=== PATIENT | female | born 1990 | race Caucasian/White ===

== ENCOUNTER 2017-10-06 16:32 | Emergency (ER) | payer BC ==
[2017-10-06 17:18] VITALS: BP 118/71
--- NOTE | 2017-10-06 17:45 | UC ---
Lower Extremity/Ankle HPI - HPI Summary HPI Summary: left great toe pain redness swelling and some purulent drainage around nail--- began after a pedicure 7 days ago - History of Current Complaint Hx Obtained From: Patient Hx Last Menstrual Period: 10/03/17 ?: No Onset/Duration: Sudden Onset, Lasting Weeks - 1, Worse Since - past 2 days Pain Intensity: 1 Pain Scale Used: 0-10 Numeric Aggravating Factor(s): Standing Able to Bear Weight: Yes <Polly Bello - Last Filed: 10/06/17 18:48> <Abby Carroll - Last Filed: 10/06/17 19:12> - History of Current Complaint Chief Complaint: UCLowerExtremity Stated Complaint: TOE INFECTION Time Seen by Provider: 10/06/17 17:28 - Allergies/Home Medications Allergies/Adverse Reactions: Allergies Allergy/AdvReac Type Severity Reaction Status Date / Time No Known Allergies Allergy Verified 10/06/17 17:12 PMH/Surg Hx/FS Hx/Imm Hx Previously Healthy: Yes - Surgical History Surgical History: Yes Surgery Procedure, Year, and Place: wisdom teeth removal 2007 [facility] [place]. arthroscopic knee sx right knee for torn meniscus. - Family History Known Family History: Negative: Cardiac Disease - Social History Occupation: Employed Full-time Lives: With Family Alcohol Use: Occasionally Alcohol Amount: 2 DRINKS PER WEEK Substance Use Type: None Smoking Status (MU): Never Smoked Tobacco Have You Smoked in the Last Year: No <Polly Bello - Last Filed: 10/06/17 18:48> Review of Systems Constitutional: Negative Skin: Other - pain and redness around left great toe nail Eyes: Negative ENT: Negative Respiratory: Negative Cardiovascular: Negative Gastrointestinal: Negative Genitourinary: Negative Motor: Negative Neurovascular: Negative Musculoskeletal: Negative Neurological: Negative Psychological: Negative Is Patient Immunocompromised?: No All Other Systems Reviewed And Are Negative: Yes <Polly Bello - Last Filed: 10/06/17 18:48> Physical Exam Triage Information Reviewed: Yes Appearance: Well-Appearing, No Pain Distress, Well-Nourished Vital Signs: Initial Vital Signs Temp 99.1 F 10/06/17 17:14 Pulse 63 10/06/17 17:14 Resp 16 10/06/17 17:14 BP 118/71 10/06/17 17:14 Pulse Ox 99 10/06/17 17:14 Vital Signs Reviewed: Yes Eye Exam: Normal Eyes: Positive: Conjunctiva Clear ENT Exam: Normal ENT: Positive: Normal ENT inspection, Hearing grossly normal. Negative: Trismus , Muffled voice, Hoarse voice Dental Exam: Normal Neck exam: Normal Neck: Positive: Supple, Nontender Respiratory Exam: Normal Respiratory: Positive: Chest non-tender, No respiratory distress, No accessory muscle use Cardiovascular Exam: Normal Cardiovascular: Positive: RRR, Pulses Normal, Brisk Capillary Refill Musculoskeletal Exam: Normal Musculoskeletal: Positive: Strength Intact, ROM Intact, Edema @ - distal left great toe Neurological Exam: Normal Neurological: Positive: Alert Psychological Exam: Normal Skin Exam: Other Skin: Positive: Other - erythema around left great toe nail <Polly Bello - Last Filed: 10/06/17 18:48> Vital Signs: Initial Vital Signs Temp 99.1 F 10/06/17 17:14 Pulse 63 10/06/17 17:14 Resp 16 10/06/17 17:14 BP 118/71 10/06/17 17:14 Pulse Ox 99 10/06/17 17:14 <Abby Carroll - Last Filed: 10/06/17 19:12> Lower Extremity Course/Dx - Course Course Of Treatment: warm soap and water soaks, keflex, tylenol/ibuprofen for pain folllow with pcp - Differential Dx/Diagnosis Provider Diagnoses: paronychia left great toe <Polly Bello - Last Filed: 10/06/17 18:48> Discharge - Sign-Out/Discharge Documenting (check all that apply): Discharge/Admit/Transfer - Billing Disposition and Condition Condition: STABLE Disposition: Home <Polly Bello - Last Filed: 10/06/17 18:48> - Billing Disposition and Condition Condition: STABLE Disposition: Home <Abby Carroll - Last Filed: 10/06/17 19:12> - Discharge Plan Condition: Stable Disposition: HOME Prescriptions: Cephalexin CAP* [Keflex CAP*] 500 mg PO QID #28 cap Patient Education Materials: Paronychia (ED), Warm Compress or Soak (ED) Referrals: Donaldo Brown DO [Primary Care Provider] - If Needed Attestation Statement User Type: Provider - I was available for consult. This patient was seen by the [facility]. The patient was not presented to, seen by, or examined by me. -Matt <Abby Carroll - Last Filed: 10/06/17 19:12>
== END 2017-10-06 17:37 | disposition home or self-care (01) ==
LOC: UCCORT 16:32
DX: L03.032 Cellulitis of left toe (principal)
CPT/HCPCS: 99212; G0463

== ENCOUNTER 2018-01-22 15:50 | Emergency (ER) | payer BC ==
--- OUTSIDE RECORDS SUMMARY | 2018-01-22 16:03 | XMS REPORT ---
:1990 External Reference #:[id number] Author Organization [facility] Address [address] [place] [address] Phone [phone] Care Team Providers Name Role Phone HCP given Primary Care Physician Unavailable Payers Type Date Identification Numbers Payment Provider Subscriber Commercial Effective: Policy Number: Luan Matson 2016 [id number] Ind/Ppo/Hmo/Pos PayID: [id number] [address] [address] [place] [address] Problems Date Description Provider Status Onset: 05/06/2013 Lymphadenopathy Donaldo Brown D.O. Active Onset: 05/06/2013 Acute pharyngitis Donaldo rBown D.O. Active Family History Date Family Member(s) Problem(s) Comments Father Irritable Bowel Syndrome Mother None First Brother None Onset: (age 70 Years) Maternal Grandmother Breast Cancer Social History Type Date Description Comments Lives With Mother And Father Diet Healthy, Well Balanced Sleep Typically sleeps 9 hours a night Smoke-Free Home is smoke-free Pets Dogs And Rabbits Abuse No history of abuse Cigarette Use 01/04/2014 Tobacco Of Any Kind Denies Use Cigarette Use Denies Cigarette Use Smoking Non Smoker / No Tobacco Daily Caffeine Consumes Caffeine/Soda Exercise Type/Frequency Volleyball, Softball, but only soccor in the Soccer last six mos Sun Exposure moderate amount of sun exposure Sun Exposure Uses sunscreen Seat Belt/Car Seat always uses seat belt Bike Helmet Always Guns in Home Yes, Not Locked Up Smoke Alarms Yes smoke alarm Contraceptive Methods 07/12/2010 Plan B - Informed Contraceptive Methods Past methods include oral used for menorrhagia contraceptives did have one partner and intercourse in those years # Partners in a Lifetime Partners 1-5 1 Father's Occupation Librarian Helper Mother's Occupation [employer] Allergies, Adverse Reactions, Alerts Date Description Reaction Status Severity Comments 11/17/2003 NKDA active Medications Medication Date Status Form Strength Qnty SIG Indications Ordering Provider Shiraz 05/20 10/21 Active Tablets 1-20mg-mc daily g Valacyclovir 05/19 Active Tablets 1gm 20tab take two B00.9 Sopchak, HCL s tablets by Valdez FultonO. mouth every 12 hours for 2 doses. start at onset of symptoms of cold sore on/in your nose or lips, prn Triamcinolone Active Ointment 0.1% apply Radha, Acetonide /0000 sparingly MD Talita to affected area 3 times a day as needed Amoxicillin 03/02 Hx Tablets 875mg 20tab 1 tab by J02.0 Tej, s mouth Vivian Monae - twice a 03/12 day x1 days Prednisone 10/11 Hx Tablets 10mg 4 tabs qam R21 Silcoff, x3days Vivain Monae - then 3 po 10/26 qam x3days /2016 then 2 po qam x3 days then 1 Qam x3days then 1/2 Qam x3days then D/C Prednisone 10/07 Hx Tablets 10mg 60tab 6 pills R21 Silcoff, s daily to Vivian Monae - start, 10/11 taper directed Fluocinonide 10/07 Hx Cream 0.1% 30gm apply a R21 Felix, thin layer Donaldo D.Oscar. - to 10/30 affected areas 2x/day as needed for itchy rash; don't use on face Clotrimazole/B 01/25 Hx Cream 1-0.05% 45gm apply to B35.6 Hektor, etamethasone affected TATA De La Fuente Dipropionate - areas 01/11 twice a day as needed Lomedia 24 Fe 11/07 Hx Tablets 1-20mg-mc take 1 g(24) tablet by - mouth once 10/21 Amoxicillin 04/02 Hx Capsules 250mg 30cap 1 three J20.9 . s times a Joann, - day for M.DOndina 04/12 ten days for bronchitis Minastrin 24 11/11 Hx Chewtabs 1-20mg-mc chew and Unknown g(24) swallow 1 - tablet by 11/07 mouth once daily Fluticasone 08/29 Hx Suspension 50mcg/Act 2 sprays 472.0 Unknown Propionate into each - nostril 05/29 once daily /2016 as needed for nasal congestion Triamcinolone 01/04 Hx Cream 0.1% 30gm apply a 691.8 Silcoff, Acetonide thin layer Vivian Monae - to 02/03 affected area on vulva 2-3x/day as needed Aviane 10/19 Hx Tablets 0.1-20mg- 28tab 1 qd A. mcg s Danette David M.D. 11/16 Elidel 10/03 Hx Cream 1% 30g apply to affected - area 01/04 sparingly Ketoconazole 09/19 Hx Cream 2% 15gm 1 unit 110.5 Sopchak, apply to Donaldo D.OOndina - affected 10/03 area twice a day Lidocaine 05/06 Hx Solution 2% 100ml Take 15 ml 785.6 Sopchak, Viscous by mouth Donaldo D.O. - every 3 09/18 hours needed for oropharynx anesthetic Valacyclovir 04/26 Hx Tablets 1gm 4tabs take two 054.9 Silco, tablets by Vivian Monae - mouth 09/18 every hours for 2 doses. start at onset of symptoms of cold sore on/in your nose Acyclovir 04/20 Hx Ointment 5% 15gm apply to 782.1 Silcoff, affected Vivian Monae - area (near 09/18 the opening of left nostril) every 3hrs while awake (6x/day) for up to 1 week Prednisone 02/04 Hx Solution 5mg/5ML 200ml Take 20 ml 075 Sopboyd by mouth Donaldo D.O. - daily for 04/19 10 with food or milk Augmentin 01/31 Hx Tablets 875-125mg 20tab Take 1 463 Sopchak s tablet by Yonatan Fulton. - mouth 04/19 every hours for sinus irritation and congestion Lidocaine 01/31 Hx Solution 2% 100ml Take 15 ml 463 Sopchak, by mouth Yonatan Fulton. - every 3 04/19 hours needed for oropharynx anesthetic Lotrimin Ultra 01/02 Hx Cream 1% 24GRT apply tid 782.1 Silcoff, ube to Vivian Monae - affected 02/01 areas until rash is gone for at least 2 days Triamcinolone 01/02 Hx Cream 0.5% 15gm apply 2-3 782.1 Silcoff, Acetonide x/day up Vivian Monae - to 2 wks 02/01 Permethrin 01/02 Hx Cream 5% 1bott topical: 782.1 Silcoff le apply all Vivian Monae - over body, 02/01 leave on at least 8 hrs, repeat 1 wk, prn Sulfamethoxazo 10/18 Hx Tablets 400-80mg take 1 706.1 Radha, le/Trimethopri tablet by MD Talita m - mouth once 04/19 a day Aviane 10/16 Hx Tablets 0.1-20mg- take 1 Renaissance mcg tablet by Orderly of - mouth once Amana 11/11 daily /2014 Sulfamethoxazo 09/27 Hx Tablets 400-80mg take 1 Radha, le/Trimethopri tablet by MD Talita m - mouth once 05/02 a day /2012 Sieve/ 09/25 Hx 1unit 724.5 Oumar Mc To elroy Rodriguez MD Collect - Possible 10/18 Kidney Stones Bactroban 06/01 Hx Ointment 2% 10uni intranasal Unknown Nasal ts : use 1/2 - of the 05/06 oint from the single-use tube- applied into one nostril and the other bid x 5 d Doxycycline 04/16 Hx Tablets 100mg 1 tab po Radha, Hycl daily MD Talita - 09/25 Typhoid 10/17 Hx Capsules 4caps 1 qod for V65.49 Jose Miguel Hussein Vaccine 4 doses Dong David - Vivian 10/18 Doxycycline 10/17 Hx Capsules 100mg 50cap 1 qd as V65.49 Jose Miguel Hussein cl s directed Danette DavidDOndina 03/13 Mupirocin 01/29 Hx Ointment 2% 22g apply tid x 1 week - to 05/06 affected areas Tessalon 02/05 Hx Capsules 100mg 30cap 1 to 2 tab 465.9 SilcoElva franks /2009 s po tid prn Vivian Monae - cough 02/20 Loratadine 02/05 Hx Tablets 10mg 30tab 1 po qd 782.1 Silsusi s Vivian Monae - 10/16 Ortho-Novum 10/24 Hx Tablets - 3tabs 1 po qd V25.01 Jose Miguel Hussein - Danette David.DOndina 05/17 Ortho 06/05 Hx Tablets 56tab take one V25. Jose Miguel Hussein Tri-Cyclen s tablet by Joann - mouth M.D. 10/24 every day as directed Doryx 12/[address] 100mg 1 bid 706.1 Shade, Mina Pollack MD - 06/05 Ferrous 03/15 Hx Tablets 325mg OTC 1 in am 280.9 Jose Miguel Hussein you find Joann, - these over M.D. 09/09 counter Permethrin 03/15 Hx Cream 5% QS apply to 133.0 . ALL areas Joann, - of the M.D. 03/25 body from the neck on down- wash off after 8-14 hrs repeat after 10-14 days Fluocinonide 10/26 Hx Cream 0.05% 25gm apply to 782.1 . affected Joann, - area tid M.D. 04/24 prn itch Tessalon 07/15 Hx Perles 100mg 50uni 1-2 qid 466.0 . ts cough Joann - M.DOndina 07/22 Amoxil 07/15 Hx Capsules 250mg 30cap 1 po tid 466.0 . s until gone Joann - M.DOndina 07/25 Pen-v 06/17 Hx 500mg 20uni 1 bid for 462 . ts ten days Danette David.DOndina 06/27 Retin-A 04/28 Hx Cream 0.05% 45gm apply to V20.2 Jose Miguel A. affected Joann, - area qhs M.D. 10/05 Erythromycin & 02/25 Hx Gel 30mg;50mg QS apply to 706.1 Jose Miguel A. Benzoyl / affected Joann, Peroxide - area q am M.D. 10/03 Biaxin 07/20 Hx Tablets 250mg 20tab 1 PO bid 462 s Until Gone Danette David M.DOndina 07/30 Retin-A 06/10 Hx Cream 0.025% 45gm apply to 706.1 . affected Joann, - area qd M.D. 04/28 Amoxil 01/05 Hx Capsules 250mg 30cap 1 tablet 3 Breiman, s times a Radhika, - day for 10 N.P. Amoxil 10/01 Hx Capsules 250mg 30cap 1 po tid 462 s until gone Danette David M.DOndina 11/16 Retin-A 09/14 Hx Gel 0.025% 45gm apply to 706.1 Jose Miguel A. affected Joann, - area qd M.D. 06/10 Retin-A Micro Hx Gel 0.04% Apply To V20.2 Shade, Affected Mina Pollack MD - Area qd 10/16 Control Of Acne Minocycline Hx Tablets 100mg V20.2 Unknown HCL /0000 - 10/16 Nortrel 1/35 Hx Tablets 1-35mg-mc QS3Mo 1 qd V70.0 Jose Miguel A. / Danette Guevara M.D. 10/16 626.6 280.9 Multivitamin - Hx 1 qd Unknown 10/30/2017 Myorisan - Hx Capsules 20mg 2 am and 1 pm Radha, 11/29/2015 MD Talita Medications Administered in Office Medication Date Status Form Strength Qnty SIG Indications Ordering Provider TB Intradermal Administered Injection Felixk, Test 014 Natalie Fulton TB Intradermal Administered Injection So Test 010 Thomas Goodrich TB Intradermal Administered Injection Nurse's Test 009 Schedule Immunizations CPT Code Status Date Vaccine Lot # [id number] Given 05/30/2016 Influenza Virus Vaccine, Quadrivalent, Split, [place] Use 12982 Given 01/29/2016 Influenza Virus Vaccine, Quadrivalent, Split, Preservative Free U-Flu Given 03/04/2015 Influenza,Unspecified 94992 Given 01/04/2014 Influenza Virus Vaccine, Quadrivalent, Split, [id number] Preservative Free 12832 Given 01/24/2013 Flu, Split Virus 3Yrs [id number] 86424 Given 04/27/2012 Hep A, Adult [id number] 62972 Given 03/01/2012 Flu Vaccine Split Virus 3Yrs And Older 76004 Given 10/18/2011 Hep A, Adult [id number] 02573 Given 04/17/2009 Flu, Split Virus 3Yrs 12297 Given 04/26/2007 Gardasil HPV vaccine 30612 Given 12/20/2006 Gardasil HPV vaccine [id number] 60394 Given 10/20/2006 Menactra Menningitis Vaccine [id number] 89191 Given 10/20/2006 Adacel or Boostrix, TDaP [id number] 12171 Given 10/20/2006 Gardasil HPV vaccine [id number] 75970 Given 10/08/2003 Rabies Immunization 02986 Given 04/22/2002 Td Immunization 73336 Given 12/26/1995 Poliomyelitis Immunization 76346 Given 12/26/1995 Dtap Immunization (Tripedia) (Infanrix) 92701 Given 12/27/1994 MMR Virus Immunization 46992 Given 04/02/1993 Hep B Immunization, Ped/Adolescent To 11 Yrs 03063 Given 10/20/1992 Hep B Immunization, Ped/Adolescent To 11 Yrs 31514 Given 09/22/1992 Hep B Immunization, Ped/Adolescent To 11 Yrs 62709 Given 03/24/1992 Poliomyelitis Immunization 88823 Given 12/26/1991 MMR Virus Immunization 47182 Given 04/16/1991 Dtap Immunization (Tripedia) (Infanrix) 04182 Given 01/31/1991 Poliomyelitis Immunization 00128 Given 01/31/1991 Dtap Immunization (Tripedia) (Infanrix) 37951 Given 1990 Poliomyelitis Immunization 19794 Given 1990 Dtap Immunization (Tripedia) (Infanrix) Vital Signs Date Vital Result Comment 10/31/2017 BP Systolic 122 mmHg BP Diastolic 80 mmHg Height 69 inches 5'9" Weight 189.00 lb BMI (Body Mass Index) 27.9 kg/m2 03/02/2017 BP Systolic 108 mmHg BP Diastolic 70 mmHg Body Temperature 98.4 F Weight 184.00 lb 01/12/2017 BP Systolic 124 mmHg BP Diastolic 64 mmHg Weight 184.00 lb 10/07/2016 BP Systolic 104 mmHg BP Diastolic 72 mmHg Weight 175.00 lb 05/30/2016 BP Systolic 120 mmHg BP Diastolic 80 mmHg Body Temperature 98.3 F Height 69 inches 5'9" Weight 174.00 lb BMI (Body Mass Index) 25.7 kg/m2 01/26/2016 BP Systolic 118 mmHg BP Diastolic 84 mmHg Weight 171.00 lb 11/30/2015 BP Systolic 106 mmHg BP Diastolic 70 mmHg Height 69 inches 5'9" Weight 168.00 lb BMI (Body Mass Index) 24.8 kg/m2 04/02/2015 Weight 161.00 lb 11/20/2014 BP Systolic 116 mmHg BP Diastolic 58 mmHg Heart Rate 65 /min Height 69 inches 5'9" Weight 168.00 lb W/Shoes BMI (Body Mass Index) 24.8 kg/m2 Last Menstrual Period 2072012 10/04/2014 BP Systolic 116 mmHg BP Diastolic 76 mmHg Height 69 inches 5'9" Weight 164.00 lb BMI (Body Mass Index) 24.2 kg/m2 08/30/2014 BP Systolic 126 mmHg BP Diastolic 90 mmHg Body Temperature 98.3 F Weight 163.00 lb shoes on 04/19/2014 BP Systolic 124 mmHg BP Diastolic 76 mmHg Height 69.25 inches 5'9.25" Weight 163.00 lb BMI (Body Mass Index) 23.9 kg/m2 01/04/2014 BP Systolic 144 mmHg BP Diastolic 80 mmHg Weight 168.00 lb 10/04/2013 BP Systolic 124 mmHg BP Diastolic 86 mmHg Height 69 inches 5'9" Weight 168.00 lb BMI (Body Mass Index) 24.8 kg/m2 09/19/2013 BP Systolic 116 mmHg BP Diastolic 64 mmHg Body Temperature 98.6 F Weight 165.00 lb 05/06/2013 BP Systolic 116 mmHg BP Diastolic 68 mmHg Body Temperature 98.6 F Weight 163.00 lb Shoes on 04/20/2013 BP Systolic 112 mmHg BP Diastolic 76 mmHg Body Temperature 97.8 F Height 69.5 inches 5'9.50" Weight 162.00 lb BMI (Body Mass Index) 23.6 kg/m2 02/04/2013 BP Systolic 116 mmHg BP Diastolic 84 mmHg Body Temperature 98.9 F Weight 153.00 lb 01/31/2013 BP Systolic 134 mmHg BP Diastolic 80 mmHg Weight 156.00 lb 01/24/2013 BP Systolic 120 mmHg BP Diastolic 70 mmHg Body Temperature 98.5 F Weight 156.00 lb 01/02/2013 BP Systolic 119 mmHg BP Diastolic 67 mmHg Heart Rate 67 /min Weight 157.00 lb 10/18/2012 BP Systolic 106 mmHg BP Diastolic 64 mmHg Heart Rate 80 /min Respiratory Rate 16 /min Height 69 inches 5'9" Weight 151.00 lb BMI (Body Mass Index) 22.3 kg/m2 09/25/2012 BP Systolic 112 mmHg BP Diastolic 82 mmHg Body Temperature 98.1 F Weight 152.00 lb 07/30/2012 BP Systolic 110 mmHg BP Diastolic 76 mmHg Heart Rate 70 /min Respiratory Rate 17 /min Body Temperature 98.8 F Weight 153.00 lb 03/19/2012 BP Systolic 124 mmHg BP Diastolic 68 mmHg Heart Rate 70 /min rrr Respiratory Rate 16 /min Weight 151.00 lb Last Menstrual Period 0 10/18/2011 BP Systolic 100 mmHg BP Diastolic 80 mmHg Height 69 inches 5'9" Weight 144.00 lb BMI (Body Mass Index) 21.3 kg/m2 Last Menstrual Period 0 08/20/2010 BP Systolic 110 mmHg BP Diastolic 90 mmHg BP Systolic Recheck 110 mmHg BP Diastolic Recheck 70 mmHg BP Systolic Standing Resting Right Arm 108 mmHg BP Diastolic Standing Resting Right Arm 70 mmHg Heart Rate 70 /min Respiratory Rate 16 /min Body Temperature 98.1 F Weight 158.00 lb Last Menstrual Period 0 07/12/2010 BP Systolic 130 mmHg BP Diastolic 76 mmHg Body Temperature 98.0 F Height 68.5 inches 5'8.50" past belkis Weight 160.00 lb BMI (Body Mass Index) 24.0 kg/m2 Last Menstrual Period 0 02/05/2010 BP Systolic 118 mmHg BP Diastolic 69 mmHg Heart Rate 85 /min Body Temperature 97.9 F Weight 160.00 lb 02/05/2010 BP Systolic 118 mmHg BP Diastolic 69 mmHg Body Temperature 97.9 F Height 85 inches 7'1" Weight 160.00 lb BMI (Body Mass Index) 15.6 kg/m2 Last Menstrual Period 0 09/14/2009 BP Systolic 78 mmHg rt arm BP Diastolic 53 mmHg rt arm BP Systolic Recheck 118 mmHg BP Diastolic Recheck 67 mmHg Heart Rate 86 /min Pulse 62 Body Temperature 98.0 F Weight 164.00 lb Last Menstrual Period [id number] 10/24/2008 BP Systolic 122 mmHg BP Diastolic 80 mmHg Height 68.75 inches 5'8.75" Weight 144.00 lb BMI (Body Mass Index) 21.4 kg/m2 Last Menstrual Period [id number] 08/01/2008 Body Temperature 98.3 F Weight 142.00 lb Last Menstrual Period 0 06/05/2008 BP Systolic 112 mmHg BP Diastolic 78 mmHg Weight 146.00 lb 05/27/2008 BP Systolic 130 mmHg BP Diastolic 90 mmHg Weight 148.00 lb Last Menstrual Period 0 has menses now 10/23/2007 BP Systolic 100 mmHg BP Diastolic 64 mmHg Heart Rate 80 /min Height 68.3 inches 5'8.30" Weight 143.00 lb BMI (Body Mass Index) 21.6 kg/m2 Last Menstrual Period 0 03/15/2007 BP Systolic 116 mmHg BP Diastolic 70 mmHg Body Temperature 98.0 F Height 68.50 inches 5'8.50" Weight 145.00 lb BMI (Body Mass Index) 21.7 kg/m2 10/26/2006 BP Systolic 108 mmHg BP Diastolic 66 mmHg Body Temperature 97.8 F 10/05/2006 BP Systolic 114 mmHg BP Diastolic 72 mmHg Heart Rate 80 /min Respiratory Rate 16 /min Height 68 inches 5'8" Weight 142.00 lb BMI (Body Mass Index) 21.6 kg/m2 Last Menstrual Period 0 10/03/2005 BP Systolic 110 mmHg BP Diastolic 60 mmHg Heart Rate 66 /min Respiratory Rate 20 /min Height 67.50 inches 5'7.50" Weight 146.00 lb BMI (Body Mass Index) 22.5 kg/m2 07/15/2005 BP Systolic 110 mmHg BP Diastolic 70 mmHg Body Temperature 99.5 F Height 67.50 inches 5'7.50" Weight 149.00 lb BMI (Body Mass Index) 23.0 kg/m2 06/17/2005 BP Systolic 100 mmHg BP Diastolic 70 mmHg Body Temperature 97.5 F Weight 150.00 lb 04/28/2005 BP Systolic 104 mmHg BP Diastolic 76 mmHg Height 67.6 inches 5'7.60" Weight 148.00 lb BMI (Body Mass Index) 22.8 kg/m2 02/25/2005 BP Systolic 102 mmHg BP Diastolic 64 mmHg Height 67.3 inches 5'7.30" Weight 153.00 lb BMI (Body Mass Index) 23.7 kg/m2 Last Menstrual Period 0 09/23/2004 BP Systolic 110 mmHg BP Diastolic 66 mmHg Heart Rate 80 /min Respiratory Rate 16 /min Height 67 inches 5'7" Weight 162.00 lb BMI (Body Mass Index) 25.4 kg/m2 Last Menstrual Period 0 07/20/2004 BP Systolic 102 mmHg BP Diastolic 60 mmHg Heart Rate 80 /min Respiratory Rate 16 /min Body Temperature 98.1 F PO Height 67 inches 5'7" Weight 173.00 lb BMI (Body Mass Index) 27.1 kg/m2 06/10/2004 Height 66.50 inches 5'6.50" Weight 178.00 lb BMI (Body Mass Index) 28.3 kg/m2 01/06/2004 BP Systolic 114 mmHg BP Diastolic 66 mmHg Body Temperature 97.6 F Weight 184.00 lb 11/17/2003 BP Systolic 110 mmHg BP Diastolic 60 mmHg Height 66 inches 5'6" Weight 181.00 lb BMI (Body Mass Index) 29.2 kg/m2 10/02/2003 Body Temperature 97.5 F Weight 178.00 lb 09/15/2003 BP Systolic 108 mmHg BP Diastolic 76 mmHg Height 65.3 inches 5'5.30" Weight 177.00 lb BMI (Body Mass Index) 29.2 kg/m2 Last Menstrual Period 0 Results Test Date Test Result H/L Range Note CBC Auto Diff 11/02/2017 White Blood Count 5.8 10^3/uL 3.5-10.8 Red Blood Count 4.70 10^6/uL 4.00-5.40 Hemoglobin 14.9 g/dL 12.0-16.0 Hematocrit 44 % 35-47 Mean Corpuscular Volume 93 fL 80-97 Mean Corpuscular Hemoglobin 32 pg High 27-31 Mean Corpuscular HGB Conc 34 g/dL 31-36 Red Cell Distribution Width 13 % 10.5-15 Platelet Count 296 10^3/uL 150-450 Mean Platelet Volume 8.6 um3 7.4-10.4 Abs Neutrophils 3.5 10^3/uL 1.5-7.7 Abs Lymphocytes 1.7 10^3/uL 1.0-4.8 Abs Monocytes 0.5 10^3/uL 0-0.8 Abs Eosinophils 0 10^3/uL 0-0.6 Abs Basophils 0 10^3/uL 0-0.2 Abs Nucleated RBC 0 10^3/uL Granulocyte % 60.2 % 38-83 Lymphocyte % 29.4 % 25-47 Monocyte % 9.1 % High 0-7 Eosinophil % 0.6 % 0-6 Basophil % 0.7 % 0-2 Nucleated Red Blood Cells % 0.1 Comp Metabolic Panel 11/02/2017 Sodium 141 mmol/L 135-145 Potassium 4.0 mmol/L 3.5-5.0 Chloride 104 mmol/L 101-111 Co2 Carbon Dioxide 30 mmol/L 22-32 Anion Gap 7 mmol/L 2-11 Glucose 66 mg/dL Low 70-100 Blood Urea Nitrogen 9 mg/dL 6-24 Creatinine 0.81 mg/dL 0.51-0.95 BUN/Creatinine Ratio 11.1 8-20 Calcium 9.2 mg/dL 8.6-10.3 Total Protein 6.6 g/dL 6.4-8.9 Albumin 3.9 g/dL 3.2-5.2 Globulin 2.7 g/dL 2-4 Albumin/Globulin Ratio 1.4 1-3 Total Bilirubin 0.60 mg/dL 0.2-1.0 Alkaline Phosphatase 55 U/L 34-104 Alt 19 U/L 7-52 Ast 22 U/L 13-39 Egfr Non- 84.8 >60 Egfr 102.6 >60 1 Laboratory test finding 11/02/2017 TSH (Thyroid Stim Horm) 1.49 mcIU/mL 0.34-5.60 Vitamin B12 405 pg/mL 180-914 2 Magnesium 1.9 mg/dL 1.9-2.7 Laboratory test finding 03/02/2017 Culture Throat Rapid Screen positive Laboratory test finding 01/12/2017 Culture Throat Rapid Screen negative Culture Throat negative Chlamydia/GC Shahana 10/07/2013 Chlamydia Trachomatis, Shahana Negative Negative Neisseria Gonorrhoeae, Shahana Negative Negative Please note: See Note 3 Laboratory test finding 10/07/2013 Rapid Plasma NONREACTIVE 4 Reagin NONREACTIVE CBC/Manual Differential 10/07/2013 White Blood Count 5.7 K/uL 3.1-10.7 Red Blood Count 4.55 M/uL 3.90-5.40 Hemoglobin 14.7 gm/dL 11.6-15.8 Hematocrit 42.5 % 36.0-46.1 Mean Cell Volume 93.4 fl 80.9-99.0 Mean Corpuscular HGB 32.3 pg 25.9-32.7 Mean Corpuscular HGB Conc 34.6 g/dL High 30.8-34.3 Platelet Count 272 K/uL 155-360 Red Cell Distri Width %CV 12.9 % 11.7-14.4 Mean Platelet Volume 10.6 fL 8.9-12.4 Total Cells Counted 100 #CELLS Neutrophils% 74 % High 33-73 Lymph% 19 % 17-56 Platelet Estimate NORMAL Band% 1 % 0-8 Monocyte% 6 % 0-10 RBC Morphology NORMAL Comprehensive Metabolic Panel 10/07/2013 Glucose 75 mg/dL Low 76-115 BUN 11 mg/dL 5-23 Creatinine 0.8 mg/dL 0.5-1.4 Glom Filtration Rate, Estimate >60 mL/min >60 If >60 mL/min >60 5 BUN/Creat 13.7 ratio Sodium 139 mmol/L 136-145 Potassium 3.7 mmol/L 3.5-5.1 Chloride 105 mmol/L 98-107 Carbon Dioxide 29 mEq/L 18-29 Anion Gap 9 mEq/L 8-16 Calcium 9.1 mg/dL 8.5-10.1 Total Protein 7.4 g/dL 6.3-8.0 Albumin 3.7 g/dL 3.5-5.0 Globulin 3.7 g/dL 1.9-4.3 Alb/Glob 1.0 ratio Bilirubin,Total 0.5 mg/dL 0.2-1.2 Sgot/Ast 23 U/L 16-40 SGPT/Alt 24 U/L Low 30-65 Alkaline Phosphatase 47 U/L Low 50-136 Laboratory test finding 05/06/2013 Culture Throat Rapid Screen neg 6 Culture Throat neg 6 Comp Metabolic Panel 05/06/2013 Sodium 138 mmol/L 133-145 Potassium 4.2 mmol/L 3.5-5.0 Chloride 104 mmol/L 101-111 Co2 Carbon Dioxide 28.0 mmol/L 22-32 Anion Gap 6.0 mmol/L 2-11 Glucose 78 mg/dL 70-100 Blood Urea Nitrogen 14 mg/dL 6-24 Creatinine 0.70 mg/dL 0.50-1.40 BUN/Creatinine Ratio 20.0 8-20 Calcium 9.2 mg/dL 8.1-9.9 Total Protein 6.8 g/dL 6.2-8.1 Albumin 3.7 g/dL 3.6-5.4 Globulin 3.1 g/dL 2-4 Albumin/Globulin Ratio 1.2 1-3 Total Bilirubin 0.4 mg/dL 0.4-1.5 Alkaline Phosphatase 50 U/L 30-110 Alt 31 U/L 14-54 Ast 29 U/L 12-42 Egfr Non- 104.6 >60 Egfr 134.6 >60 7 CBC With Manual Diff 05/06/2013 White Blood Count 5.7 10^3/uL 4.8-10.8 Red Blood Count 4.86 10^6/uL 4.0-5.4 Hemoglobin 15.3 g/dL 12.0-16.0 Hematocrit 45 % 35-47 Mean Corpuscular Volume 93 fL 80-97 Mean Corpuscular Hemoglobin 31 pg 27-31 Mean Corpuscular HGB Conc 34 g/dL 31-36 Red Cell Distribution Width 13 % 10.5-15 Platelet Count 223 10^3/uL 150-450 Mean Platelet Volume 9 um3 7.4-10.4 Abs Neutrophils 3.9 10^3/uL 1.5-7.7 Abs Lymphocytes 1.4 10^3/uL 1.0-4.8 Abs Monocytes 0.4 10^3/uL 0-0.8 Abs Eosinophils 0 10^3/uL 0-0.6 Abs Basophils 0 10^3/uL 0-0.2 Abs Nucleated RBC 0.01 10^3/uL Neutrophil % 59 % 38-83 Lymphocytes % 26 % 25-47 Monocytes % 7 % 0-13 Basophil % 2 % 0-2 Reactive Lymph % 6 % 0-6 RBC Morphology Normal Normal HIV 1/2 AB Evaluation 05/06/2013 HIV 1 2 Antibody Nonreactive Nonreactive 8 Hepatitis Acute Panel 05/06/2013 Hepatitis B Surface Nonreactive Nonreactive Antigen Hepatitis B Core IgM Nonreactive Nonreactive Hepatitis A AB IgM Nonreactive Nonreactive Hepatitis C Antibody Nonreactive Nonreactive Herpes Simplex PCR 04/20/2013 Herpes Source left nare HSV 1 PCR Positive Negative HSV 2 PCR Negative Negative 9 Ua Inhouse 01/31/2013 Ua Glucose - 10 Ua Bilirubin - 10 Ua Ketones - 10 Ua Specific Mead 1.005 10 Ua Blood nh mod 10 Ua PH 5.0 10 Ua Protein - 10 Ua Urobilinogen - 10 Ua Nitrite - 10 Ua Leukocytes - 10 Laboratory test finding 01/31/2013 Monospot Positive Negative 11 CBC Auto Diff 01/31/2013 White Blood Count 7.9 10^3/uL 4.8-10.8 Red Blood Count 4.51 10^6/uL 4.0-5.4 Hemoglobin 15.4 g/dL 12.0-16.0 Hematocrit 44 % 35-47 Mean Corpuscular Volume 97 fL 80-97 Mean Corpuscular Hemoglobin 34 pg High 27-31 Mean Corpuscular HGB Conc 35 g/dL 31-36 Red Cell Distribution Width 13 % 10.5-15 Platelet Count 121 10^3/uL Low 150-450 Mean Platelet Volume 9 um3 7.4-10.4 Abs Neutrophils 1.7 10^3/uL 1.5-7.7 Abs Lymphocytes 5.5 10^3/uL High 1.0-4.8 Abs Monocytes 0.6 10^3/uL 0-0.8 Abs Eosinophils 0 10^3/uL 0-0.6 Abs Basophils 0 10^3/uL 0-0.2 Abs Nucleated RBC 0.03 10^3/uL CMV Igg/Igm 01/31/2013 Cytomegalovirus IgG Antibody Positive Negative 12 Cytomegalovirus IgM Antibody Negative Negative Manual Differential 01/31/2013 Neutrophil % 26 % Low 38-83 Band % 1 % 0-8 Lymphocytes % 48 % High 25-47 Monocytes % 1 % 0-13 Reactive Lymph % 24 % High 0-6 13 RBC Morphology Normal Normal Laboratory test finding 01/31/2013 Pathologist Review (SEE NOTE) 14 Liver Function Panel 01/31/2013 Total Protein 6.4 g/dL 6.2-8.1 Albumin 3.4 g/dL Low 3.6-5.4 Globulin 3.0 g/dL 2-4 Albumin/Globulin Ratio 1.1 1-3 Total Bilirubin 3.1 mg/dL High 0.4-1.5 Direct Bilirubin 1.8 mg/dL High 0.1-0.5 Indirect Bilirubin 1.3 mg/dL High 0.3-1.0 Alkaline Phosphatase 110 U/L 30-110 Alt 93 U/L High 14-54 Ast 105 U/L High 12-42 Laboratory test finding 01/31/2013 Throat Culture (SEE NOTE) 10, 15 Laboratory test finding 01/24/2013 Culture Throat Rapid Screen neg Culture Throat neg Urine Micro Inhouse 10/18/2012 Ua WBC 0-1 Ua RBC 0-2 Ua Casts - Ua Epi - Ua Other - Ua Glucose - Ua Bilirubin - Ua Ketones - Ua Specific Mead 1.005 Ua Blood 2+ Ua PH 5.0 Ua Protein - Ua Urobilinogen - Ua Nitrite - Ua Leukocytes - Culture Urine Inhouse 09/25/2012 Colonies no growth Ua Inhouse 09/25/2012 Ua Glucose - Ua Bilirubin - Ua Ketones - Ua Specific Mead 1.010 Ua Blood sm Ua PH 6.0 Ua Protein tr Ua Urobilinogen - Ua Nitrite - Ua Leukocytes - Laboratory test finding 07/12/2010 Hemoglobin 15.5 Laboratory test finding 10/15/2009 Lyme Disease Serology Negative Negative 16 GC/Chlyamdia Thin Prep Vial 09/14/2009 CHL On Thin Prep Vial NEGATIVE Negative 17 GC On Thin Prep Vial NEGATIVE Negative 18 Laboratory test 09/14/2009 Cytology <SEE 19 finding NOTE> Laboratory test 05/28/2008 TSH 1.53 MIU/ML 0.34-5.6 finding 0 CBC With Electronic 05/28/2008 White Blood Count 6.2 CUMM 4.8-10.8 Diff Red Cell Count 4.28 CUMM 4.2-5.4 Hemoglobin 13.8 g/dL 12.0-16.0 Hematocrit 39 % 35-47 Mean Corpuscular Volume 91 um3 79-97 Mean Corpuscular Hemoglob 32 pg High 27-31 Mean Corpuscular HGB Cone 36 g/dL 32-36 Redcell Distribution WDTH 14 % 10.5-15 Platelet Count 303 CUMM 150-450 Mean Platelet Volume 8.4 um3 7.4-10.4 Gran % 62.3 % 38-83 Lymph % 27.0 % 25-47 Mononuclear % 9.9 % High 1-9 Eosinophil % 0.5 % 0-6 Basophil % 0.3 % 0-2 Abs Lymphs 1.7 1.0-4.8 Abs Mononuclear 0.6 0-0.8 Absolute Neutrophil Count 3.9 1.5-7.7 Abs Eosinophils 0 0-0.6 Abs Basophils 0 0-0.2 20 Comp Metabolic Panel 05/28/2008 Sodium 136 mmol/L 135-145 Potassium 3.7 mmol/L 3.5-5.0 Chloride 104 mmol/L 101-111 Co2 (Carbon Dioxide) 29.0 mmol/L 22-32 Anion Gap 3.0 mmol/L 2-11 21 Glucose 75 mg/dL 70-100 22 BUN 11 mg/dL 6-24 Creatinine 0.70 mg/dL 0.50-1.40 One Over Creatinine 1.40 BUN/Creatinine Ratio 15.7 8-20 Calcium 8.9 mg/dL 8.1-9.9 23 Total Protein 6.2 GM/DL 6.2-8.1 Albumin 3.8 GM/DL 3.6-5.4 Globulin 2.4 GM/DL 2-4 Albumin/Globulin Ratio 1.6 1-3 Bilirubin Total 0.8 mg/dL 0.4-1.5 Alkaline Phosphatase 49 U/L 40-122 Alt (SGPT) 22 U/L 14-54 Ast (Sgot) 29 U/L 12-42 Iron & Iron Binding Capacity 05/28/2008 Iron Total 161 g/dL 28-170 Unsaturated Iron Binding 117 g/dL Total Iron Binding Capacity 278 g/dL 250-450 % Iron Saturation 58 % High 15-55 Laboratory test finding 05/28/2008 FSH 8.73 MIU/ML 24 Lutenizing Hormone 5.97 MIU/ML 25 Laboratory test finding 10/23/2007 Hemoglobin 13.1 Laboratory test finding 06/19/2007 Hemoglobin 13.6 Urine Micro Inhouse 10/07/2006 Urine Microscopic Inhouse FEW EPI'S Ua Inhouse 10/07/2006 Ua Glucose - Ua Bilirubin - Ua Ketones - Ua Specific Mead 1.020 Ua Blood - Ua PH 6.0 Ua Protein - Ua Urobilinogen - Ua Nitrite - Ua Leukocytes - Laboratory test finding 10/05/2006 Hemoglobin 12.6 Laboratory test finding 10/03/2005 Hemoglobin 14.1 Urine Microscopic Inhouse LG AMT OF SEDIMENT Ua Inhouse 10/03/2005 Ua Glucose NEG Ua Bilirubin NEG Ua Ketones NEG Ua Specific Mead 1.015 Ua Blood NEG Ua PH 6.5 Ua Protein NEG Ua Urobilinogen NEG Ua Nitrite NEG Ua Leukocytes NEG Laboratory test finding 06/17/2005 Culture Throat NEG P/ Laboratory test finding 09/23/2004 Hemoglobin 15.9 Ua Inhouse 09/23/2004 Ua Glucose neg Ua Bilirubin neg Ua Ketones neg Ua Specific Mead 1.020 Ua Blood neg Ua PH 5.0 Ua Protein tr Ua Urobilinogen neg Ua Nitrite neg Ua Leukocytes neg Laboratory test finding 09/23/2004 Urine Microscopic Inhouse neg Laboratory test finding 07/21/2004 Culture Throat NEG Laboratory test finding 07/20/2004 Monospot NEGATIVE Negative CBC With Manual Diff 07/20/2004 RBC Morphology NORMAL White Blood Count 13.0 CUMM High 4.8-10.8 Hematocrit 44 % 35-45 Hemoglobin 14.9 g/dL 11.5-15.5 Mean Corpuscular HGB Cone 34 g/dL 32-36 Mean Corpuscular Hemoglob 31 pg 27-31 Mean Corpuscular Volume 93 um3 79-97 Mean Platelet Volume 8.6 um3 7.4-10.4 Platelet Count 295 CUMM 150-450 Polysegmented Neutrophil 78 % 38-83 Red Cell Count 4.74 CUMM 4.0-5.2 Redcell Distribution WDTH 13 % 10.5-15 Lymphocyte 15 % 5-47 Monocyte 7 % 0-13 1 Because ethnic data is not always readily available, this report includes an eGFR for both -Americans and non- Americans. The National Kidney Disease Education Program (NKDEP) does not endorse the use of the MDRD equation for patients that are not between the ages of 18 and 70, are , have extremes of body size, muscle mass, or nutritional status, or are non- or non-. According to the National Kidney Foundation, irrespective of diagnosis, the stage of the disease is based on the level of kidney function: Stage Description GFR(mL/min/1.73 m(2)) 1 Kidney damage with normal or decreased GFR 90 2 Kidney damage with mild decrease in GFR 60-89 3 Moderate decrease in GFR 30-59 4 Severe decrease in GFR 15-29 5 Kidney failure <15 (or dialysis) 2 Normal Range 180 to 914 Indeterminate Range 145 to 180 Deficient Range <145 3 Acceptable specimens for this test are male urethral swab, endocervical swab and liquid based pap specimens, vaginal swabs in APTIMA transports and first void urine. See online Directory of Services for test number for rectal and pharyngeal specimens. Performed at: RN - [facility] [address] [id number] Supervisor [employer]: Davina Medrano MD, Phone: [phone] PENDING; TEST PERFORMED ON MONDAYS AND THURSDAYS 5 Note: Persistent reduction for 3 months or more in an eGFR <60 mL/min/1.73 m2 defines CKD. Patients with eGFR values >/=60 mL/min/1.73 m2 may also have CKD if evidence of persistent proteinuria is present. The original MDRD equation for estimated GFR is not valid for patients less than 18 years of age. Additional information may be found at www.kdoqi.org. 6 05/07/13 Thr cult replated to be read on 05/08/13 d/t bacitracin disc was omitted on original culture. SL 7 Because ethnic data is not always readily available, this report includes an eGFR for both -Americans and non- Americans. The National Kidney Disease Education Program (NKDEP) does not endorse the use of the MDRD equation for patients that are not between the ages of 18 and 70, are , have extremes of body size, muscle mass, or nutritional status, or are non- or non-. According to the National Kidney Foundation, irrespective of diagnosis, the stage of the disease is based on the level of kidney function: Stage Description GFR(mL/min/1.73 m(2)) 1 Kidney damage with normal or decreased GFR 90 2 Kidney damage with mild decrease in GFR 60-89 3 Moderate decrease in GFR 30-59 4 Severe decrease in GFR 15-29 5 Kidney failure <15 (or dialysis) 8 It is recognized that currently available assays for the detection of antibodies to HIV-1 and/or HIV-2 may not detect all infected individuals. HIV antibodies may be undetectable in some stages of the infection and in some clinical conditions. The performance of this assay has not been established for populations of infants or children. Assayed by Chemiluminescence Microparticle Immunoassay on the Siemens Advia Centaur CP. Values obtained with different methods or kits cannot be used interchangeably.The diagnostic specificity of the ADVIA Centaur 1/O/2 Enhanced assay in the low risk population was 99.90% (6052/6058) with a 95% confidence interval of 99.78 to 99.96%. 9 Analyte Specific Reagent: This test was developed and its performance characteristics determined by [facility]. It has not been cleared or approved by the U.S. Food and Drug Administration. Test Performed by: [place] [address] Bath Mix Operator: Antonino Grimaldo III, M.D. 10 reviewed in office 11 @01/31/13 1333: Manual Diff added. RFLXG=DIFF. Verbal to message center by [id number] at 1710 on 01/31/13. N @01/31/13 1333: Manual Diff added. RFLXG=DIFF. Verbal to message center by [id number] at 1710 on 01/31/13. @01/31/13 1713: Path Review added. RFLXG=PATH. N 12 Test Performed by: [address] [address] Bath Mix Operator: Antonino Grimaldo III, M.D. 13 Verbal to by [id number] at 1717 on 01/31/13. Results read back accurately. 14 CBC and smear reviewed. Reactive lymphocytosis consistent with acute viral infection or reactive process. The monospot test is positive. No blasts seen. Reviewed by Lynn Flanagan MD 15 RUN DATE: 02/03/13 [facility] LAB LIVE PAGE 1 RUN TIME: [address] [place] [id number] Specimen Inquiry Name: BRENNA LONG : [address]: Donaldo Brown DO Acct: [id number] Unit: [id number] AGE: 22 Location: [facility] Re01/31/13 SEX: F Status: REG REF SPEC: [id number] CLAUDIA: 01/31/13-[address] [facility] [address]: Donaldo Brown DO REQ: [id number] RECD: 01/31/13 STATUS: COMP _ SOURCE: THROAT SPDESC: ORDERED: Throat Culture QUERIES: Medent Number [id number] Procedure Result Verified Site Throat Culture Final 02/03/13- 957 ML Organism 1 NORMAL GUERRERO Quantity 3+ END OF REPORT * ML=Testing performed at Main Lab DEPARTMENT OF PATHOLOGY, [address] [place] [address] Jareth Humphries M.D. Director [facility] Permit #[id number] 16 Test Performed by: [facility] Dpt of Lab Med and Pathology [address] [place] [address] Bath Mix Operator: Antonino Grimaldo III, M.D. 17 . A negative result does not preclude the presence of a C.trachomatis or N.gonorrhoeae infection because results are dependent on adequate specimen collection, absence of inhibitors, and sufficient rRNA to be detected. Test results may be affected by improper specimen collection, improper specimen storage, technical error, or specimen mixup. . 18 . A negative result does not preclude the presence of a C.trachomatis or N.gonorrhoeae infection because results are dependent on adequate specimen collection, absence of inhibitors, and sufficient rRNA to be detected. Test results may be affected by improper specimen collection, improper specimen storage, technical error, or specimen mixup. . 19 ---- RUN DATE: 09/15/09 [facility] NMI LIVE PAGE 1 RUN TIME: 1009 Specimen Inquiry RUN USER: INTERFACE -- Name: BRENNA LONG Status: REG REF Re09/14/09 Age/Sex: 18/F Unit#: [id number] Location: [facility]. : [birth year] -- Specimen: [id number] SOUT Spec Date: 09/14/[address]: So PAYTON Spec Type: CYTOLOGY Received: 09/15/09-0834 Copies to: SOURCE ECTOCERVICAL/ENDOCERVICAL Thin Prep with Reflex HPV Test PATIENT INFORMATION ACTUAL COLLECTION DATE: 09/14/09 ? No POST MENOPAUSAL? No HYSTERECTOMY? No LAST MENSTRUAL PERIOD: 08/18/09 ADEQUACY OF SPECIMEN Satisfactory for evaluation * Transformation zone component identified * Scanty epithelial component * DIAGNOSIS NEGATIVE FOR INTRAEPITHELIAL LESION OR MALIGNANCY * This Pap test was evaluated with the assistance of the ThinPrep Pap Test Imaging System. The Pap Smear is a screening test designed to aid in the detection of premalign ant and malignant conditions of the uterine cervix. It is not a diagnostic procedure a nd should not be used as the sole means of detecting cervical cancer. Both false- positiv e and false-negative reports do occur. Depending on your risk status, a Pap smear madai uld be obtained and evaluated every one to three years. Final Interpretation electronically signed by: Bere NARANJO(ASCP) 09/15/09 100 9 -- -- DEPARTMENT OF PATHOLOGY, [address] [place] [address] [facility] Permit #[id number] Jareth Humphries M.D. Director Pham York M.D. Director Life Dir scar -- 20 NRBC 21 Anion gap measurement may be of limited value in the presence of any alkalosis, especially in a combined acid base disorder. . 22 Note change in reference range as of 12/20/07. The change was based on recommendations from the [place] [employer]. 23 Please note change in reference range effective 07 . 24 REFERENCE RANGE ADULT MALES 1 - 20 NORMALLY MENSTRUATING FEMALES - Follicular Phase 3 - 9 - Mid-Cycle Peak 4 - 23 - Luteal Phase 1 - 6 POSTMENOPAUSAL FEMALES 16 - 114 NOTE: PEDIATRIC REFERENCE RANGES HAVE NOT BEEN ESTABLISHED FOR THIS ASSAY. PLEASE REFER TO AN EXTERNAL SOURCE FOR AN ACCURATE REFERENCE RANGE. . 25 REFERENCE RANGE ADULT MALES 2 - 12 NORMALLY MENSTRUATING FEMALES - Follicular Phase 1 - 18 - Mid-Cycle Peak 24 - 105 - Luteal Phase 0.6 - 20 POSTMENOPAUSAL FEMALES 15 - 62 NOTE: PEDIATRIC REFERENCE RANGES HAVE NOT BEEN ESTABLISHED FOR THIS ASSAY. PLEASE REFER TO AN EXTERNAL SOURCE FOR AN ACCURATE REFERENCE RANGE. . Procedures Date CPT Code Description Status 01/17/2018 97073 ECG Monitor/Review & Interpretation, W/Visual Completed Superimpos Scan 01/17/2018 66037 ECG Monitor/Recording W/Scanning Completed 10/31/2017 66765 Electrocardiogram Complete Completed 10/18/2012 15256 Visual Acuity Screening Test Completed 08/20/2010 38565 Electrocardiogram Complete Completed Encounters Type Date Location Provider CPT E/M Dx Office Visit 10/31/2017 3:50p [place] [address] R07.9 I49.9 Office Visit 03/02/2017 9:45a [place] [address] J02.0 J06.9 Office Visit 01/12/2017 4:15p [place] [address] J06.9 Office Visit 10/07/2016 5:00p Main Office Dov Burnham M.D. 99155 R21 Office Visit 05/30/2016 4:30p Main Office Jose Miguel David M.D. 07121 J06.9 Office Visit 01/26/2016 4:35p [place] [address] B35.6 Office Visit 11/30/2015 4:15p Main Office Jose Miguel David M.D. 03640 Z00.00 Z71.89 Z71.89 Office Visit 04/02/2015 8:55a Main Office Jose Miguel David M.D. 13713 J20.9 Office Visit 11/20/2014 3:30p Main Office Donaldo Brown D.O. 31759 719.46 717.9 V70.0 Office Visit 10/04/2014 9:15a Main Office Jose Miguel David M.D. 92322 719.46 Office Visit 08/30/2014 9:45a Main Office Dov Burnham M.D. 29661 472.0 054.9 Office Visit 04/19/2014 9:15a Main Office Donaldo Brown D.O. 50981 V68.89 V74.1 V70.3 Office Visit 01/04/2014 11:30a Main Office Dov Burnham M.D. 81376 691.8 V04.81 V07.2 Office Visit 10/04/2013 4:00p Main Office Jose Miguel David M.D. 69871 692.9 v07.2 782.1 Office Visit 09/19/2013 12:55p Main Office Donaldo Brown D.O. 51376 110.5 Office Visit 05/06/2013 9:15a Main Office Donaldo Brown D.O. 45640 785.6 462 474.00 Office Visit 04/20/2013 11:00a Main Office Dov Burnham M.D. 04108 782.1 Office Visit 02/04/2013 10:45a Main Office Donaldo Brown D.O. 96331 463 075 Office Visit 01/31/2013 11:15a Main Office Donaldo Brown D.O. 62400 463 791.7 Office Visit 01/24/2013 1:45p Main Office Jose Miguel David M.D. 68515 462 785.6 782.1 V65.49 v04.81 v07.2 Office Visit 01/02/2013 9:20a Main Office Thomas Johnson 39185 782.1 Office Visit 10/18/2012 2:45p Main Office Jose Miguel David M.D. 23038 V70.0 724.5 V72.0 Office Visit 09/25/2012 10:00a [place] [address] 724.5 465.9 706.1 788.1 Office Visit 07/30/2012 8:55a Main Office Jose Miguel David M.D. 96207 465.9 786.2 Office Visit 03/19/2012 11:30a Main Office Jose Miguel David M.D. 65593 V70.3 V68.89 Office Visit 10/18/2011 2:45p Main Office Jose Miguel Daivd M.D. 51980 V65.49 V05.3 V07.2 V70.0 Office Visit 08/20/2010 4:00p Main Office Jose Miguel David M.D. 36711 465.9 780.2 Office Visit 07/12/2010 11:30a Main Office Jose Miguel David M.D. 25827 465.9 280.9 Office Visit 02/05/2010 4:00p Main Office Thomas Johnson 10387 465.9 782.1 Office Visit 09/14/2009 2:00p Main Office Thomas Johnson 21000 V74.1 V70.0 V72.31 Office Visit 10/24/2008 9:15a Main Office Jose Miguel David M.D. 04810 626.6 280.9 V20.2 V25.01 Office Visit 08/01/2008 3:00p Main Office Jose Miguel David M.D. 34368 381.81 465.9 Office Visit 06/05/2008 1:45p Main Office Jose Miguel David M.D. 50661 626.6 280.9 V37.21 V25.01 706.1 Office Visit 05/27/2008 3:45p Main Office Jose Miguel David M.D. 42119 626.6 Office Visit 10/23/2007 3:45p Main Office Jose Miguel David M.D. 27691 280.9 V20.2 Office Visit 03/15/2007 11:40a Main Office Jose Miguel David M.D. 32877 133.0 280.9 Office Visit 10/26/2006 10:15a Main Office Jose Miguel David M.D. 93420 782.1 706.1 Office Visit 10/05/2006 3:15p Main Office Jose Miguel David M.D. 26669 V20.2 V70.3 Office Visit 10/03/2005 4:00p Main Office Jose Miguel David M.D. 84938 V20.2 V78.0 V81.6 Office Visit 07/15/2005 12:55p Main Office Jose Miguel David M.D. 54917 466.0 Office Visit 06/17/2005 3:25p Main Office Jose Miguel David M.D. 94369 683 462 Office Visit 04/28/2005 3:45p Main Office Jose Miguel David M.D. 73610 706.1 Office Visit 02/25/2005 2:15p Main Office Jose Miguel David M.D. 21634 706.1 Office Visit 09/23/2004 1:30p Main Office Jose Miguel David M.D. 74349 706.1 v81.6 v20.2 Office Visit 07/20/2004 12:55p Main Office Jose Miguel David M.D. 38428 462 683 Office Visit 06/10/2004 4:15p Main Office Jose Miguel David M.D. 57836 706.1 Office Visit 01/06/2004 9:20a Main Office Radhika Dorsey N.P. 98619 465.9 Office Visit 11/17/2003 3:00p Main Office Jose Miguel David M.D. 63612 706.1 Office Visit 10/02/2003 11:00a Main Office Jose Miguel David M.D. 01029 462 Office Visit 09/15/2003 3:15p Main Office Jose Miguel David M.D. 67980 V20.2 706.1 278.00 Office Visit 01/16/2003 9:15a Main Office Jose Miguel David M.D. 33898 465.9 785.6 Plan of Care 10/31/2017 - Leisa Winslow PAR07.9 Chest pain, unspecifiedComments: Intermittent episodes of mild chest pain. EKG showed marked sinus arrhythmia. Labs as below. Will refer to cardiology for further workup/treatment.I49.9 Cardiac arrhythmia, unspecifiedComments:See #1Referral:Raul Rucker MD, Cardiology/Phys/Osteo
[2018-01-22 17:52] VITALS: BP 122/68
--- NOTE | 2018-01-22 19:00 | UC ---
General HPI - HPI Summary HPI Summary: Patient states that she's had a cold for a week. She describes as a some sinus congestion, headache and yellow nasal drainage. She states that she's had sinus infections before and this does not feel like a sinus infection. Last evening she started to feel "feverish" and developed some body aches and then today she has a sore throat. She states that she's had strep throat in the past and this feels the same. - History of Current Complaint Chief Complaint: UCGeneralIllness Stated Complaint: THROAT,BODYACHES,FEVERISH Time Seen by Provider: 01/22/18 18:52 Hx Obtained From: Patient Hx Last Menstrual Period: 12/24/17 Onset/Duration: Gradual Onset Timing: Constant Pain Intensity: 5 Alleviating: nothing Associated Signs & Symptoms: Positive: Fever - Allergy/Home Medications Allergies/Adverse Reactions: Allergies Allergy/AdvReac Type Severity Reaction Status Date / Time No Known Allergies Allergy Verified 01/22/18 17:44 Home Medications: Home Medications Ibuprofen TAB* [Advil TAB*] 400 mg PO Q6H PRN 01/22/18 [History Confirmed ] Magnesium Oxide [Magnesium] 250 mg PO DAILY 01/22/18 [History Confirmed 01/22/18 ] Pseudoephedrine HCl [Sudafed 12 Hour] 120 mg PO ONCE PRN 01/22/18 [History Confirmed 01/22/18] PMH/Surg Hx/FS Hx/Imm Hx - Additional Past Medical History Additional PMH: mono, strep throat - Surgical History Surgical History: Yes Surgery Procedure, Year, and Place: wisdom teeth removal 2007 ORAL SURG [facility]. arthroscopic knee sx right knee for torn meniscus. - Family History Known Family History: Positive: Other - pancreatic ca Negative: Cardiac Disease - Social History Occupation: Employed Full-time Lives: With Family Alcohol Use: Occasionally Alcohol Amount: 2 DRINKS PER WEEK Substance Use Type: None Smoking Status (MU): Never Smoked Tobacco Have You Smoked in the Last Year: No - Immunization History Vaccination Up to Date: Yes Review of Systems Constitutional: Fever Skin: Negative Eyes: Negative ENT: Sore Throat, Sinus Congestion Respiratory: Negative Cardiovascular: Negative Gastrointestinal: Negative Genitourinary: Negative Motor: Negative Neurovascular: Negative Musculoskeletal: Negative Neurological: Negative Psychological: Negative Is Patient Immunocompromised?: No All Other Systems Reviewed And Are Negative: Yes Physical Exam Triage Information Reviewed: Yes Appearance: Well-Appearing Vital Signs: Initial Vital Signs Temp 98.4 F 01/22/18 17:45 Pulse 82 01/22/18 17:45 Resp 22 01/22/18 17:45 BP 122/68 01/22/18 17:45 Pulse Ox 100 01/22/18 17:45 Vital Signs Reviewed: Yes Eyes: Positive: Conjunctiva Clear ENT: Positive: Pharyngeal erythema, Nasal congestion, TMs normal, Tonsillar swelling, Tonsillar exudate, Uvula midline. Negative: Nasal drainage, Trismus, Muffled voice, Hoarse voice, Sinus tenderness Neck: Positive: Supple, Nontender, Enlarged Nodes @ - peritonsilar Respiratory: Positive: Lungs clear, Normal breath sounds Cardiovascular: Positive: RRR, No Murmur Abdomen Description: Positive: Nontender, No Organomegaly, Soft. Negative: Distended, Guarding Bowel Sounds: Positive: Present Musculoskeletal: Positive: ROM Intact Neurological: Positive: Alert Psychological: Positive: Age Appropriate Behavior Skin Exam: Normal Diagnostics - Laboratory Diagnostic Studies Completed/Ordered: rapid strep=neg Course/Dx - Course Course Of Treatment: rapid strep=neg. no sinsu tenderness or purulent drainage. tx supportive. - Differential Dx - Multi-Symptom Provider Diagnoses: URI, tonsillitis Discharge - Sign-Out/Discharge Documenting (check all that apply): Patient Departure All imaging exams completed and their final reports reviewed: No Studies - Discharge Plan Condition: Stable Disposition: HOME Patient Education Materials: Upper Respiratory Infection (DC), Tonsillitis (ED) Referrals: Donaldo Brown DO [Primary Care Provider] - 5 Days - Billing Disposition and Condition Condition: STABLE Disposition: Home
== END 2018-01-22 19:26 | disposition home or self-care (01) ==
LOC: UCCORT 15:50
DX: J06.9 Acute upper respiratory infection, unspecified (principal); J03.90 Acute tonsillitis, unspecified
CPT/HCPCS: 87651; 99211; G0463

== ENCOUNTER 2018-08-17 19:52 | Emergency (ER) | payer BC ==
[2018-08-17 20:39] VITALS: BP 124/74
--- NOTE | 2018-08-17 20:52 | ED ---
Skin Complaint - HPI Summary HPI Summary: 27 yr old female with the complaint of rash to anterior abdomen and anterior neck. Rash present for one week. Had a spot on the neck and also diana umbilical. It is itchy, red, dry and seems to have gotten worse on the neck. She has been using antifungal cream to neck and abdomen. No tongue, lip or throat swelling. NO other complaints. - History of Current Complaint Chief Complaint: UCSkin Time Seen by Provider: 08/17/18 20:41 Stated Complaint: SKIN COMPLAINT Hx Last Menstrual Period: August 01 Pain Intensity: 0 - Allergy/Home Medications Allergies/Adverse Reactions: Allergies Allergy/AdvReac Type Severity Reaction Status Date / Time No Known Allergies Allergy Verified 08/17/18 20:39 PMH/Surg Hx/FS Hx/Imm Hx Endocrine/Hematology History: Denies: Hx Diabetes Cardiovascular History: Denies: Hx Hypertension, Hx Pacemaker/ICD Musculoskeletal History: Reports: Other Musculoskeletal History - 2 YRS HX RIGHT Sensory History: Reports: Hx Contacts or Glasses - BOTH Denies: Hx Hearing Aid Opthamlomology History: Reports: Hx Contacts or Glasses - BOTH Psychiatric History: Denies: Hx Panic Disorder - Surgical History Surgery Procedure, Year, and Place: wisdom teeth removal 2007 [facility] [place]. arthroscopic knee sx right knee for torn meniscus. Hx Anesthesia Reactions: No Infectious Disease History: No Infectious Disease History: Denies: Traveled Outside the [place] in Last 30 Days - Family History Known Family History: Positive: Other - pancreatic ca Negative: Cardiac Disease - Social History Occupation: Employed Full-time Alcohol Use: Occasionally Alcohol Amount: 2 DRINKS PER WEEK Substance Use Type: Reports: None Smoking Status (MU): Never Smoked Tobacco Have You Smoked in the Last Year: No Review of Systems Constitutional: Negative Positive: Rash All Other Systems Reviewed And Are Negative: Yes Physical Exam Triage Information Reviewed: Yes Vital Signs On Initial Exam: Initial Vitals Temp Pulse Resp BP Pulse Ox 97.4 F 65 18 124/74 100 08/17/18 20:30 08/17/18 20:30 08/17/18 20:30 08/17/18 20:30 08/17/18 20:30 Vital Signs Reviewed: Yes Appearance: Positive: Well-Appearing, No Pain Distress Skin: Positive: Warm, Other - skin with erythema, redness, lichen appearance. No scaling and no raised boarders or central clearing. Rash on anterior neck and also upper half of umbilical area. Appears consistent most with dermatitis. Head/Face: Positive: Normal Head/Face Inspection Eyes: Positive: EOMI, NATALIA ENT: Positive: Normal ENT inspection Neck: Positive: Nontender Respiratory/Lung Sounds: Positive: Clear to Auscultation, Breath Sounds Present Cardiovascular: Positive: RRR. Negative: Murmur Abdomen Description: Negative: Distended Musculoskeletal: Positive: Strength/ROM Intact Neurological: Positive: Sensory/Motor Intact, Alert, Oriented to Person Place, Time, CN Intact II-III Psychiatric: Positive: Normal - Nisreen Coma Scale Best Eye Response: 4 - Spontaneous Best Motor Response: 6 - Obeys Commands Best Verbal Response: 5 - Oriented Coma Scale Total: 15 Diagnostics - Vital Signs Vital Signs Temp Pulse Resp BP Pulse Ox 08/17/18 20:30 97.4 F 65 18 124/74 100 - Laboratory Lab Statement: Any lab studies that have been ordered have been reviewed, and results considered in the medical decision making process. Course/Dx - Course Course Of Treatment: 27 yr old with dermatitis. Rx Medrol Dose antonio. - Diagnoses Provider Diagnoses: Dermatitis Discharge - Sign-Out/Discharge Documenting (check all that apply): Patient Departure All imaging exams completed and their final reports reviewed: No Studies - Discharge Plan Condition: Good Disposition: HOME Prescriptions: methylPREDNISolone [Medrol Dosepak 4 MG*] 4 mg PO .SEE ANTONIO INSTRUCTION #1 antonio Patient Education Materials: Dermatitis (ED) Referrals: Donaldo Brown DO [Primary Care Provider] - 2 Days - Billing Disposition and Condition Condition: GOOD Disposition: Home
== END 2018-08-17 20:54 | disposition home or self-care (01) ==
LOC: UCCORT 19:52
DX: L30.9 Dermatitis, unspecified (principal)
CPT/HCPCS: 99212; G0463

== ENCOUNTER 2018-10-08 15:18 | Emergency (ER) | payer BC ==
[2018-10-08 15:50] VITALS: BP 122/64
--- NOTE | 2018-10-08 16:08 | UC ---
Skin Complaint HPI - HPI Summary HPI Summary: 28 year old female, 10 weeks , presents with red, itchy rash to b/l inner thighs since thurs. no fever, chills, no prior occurrences. no rashes elsewhere, h/o rash on neck months ago, resolved with oral steroids. - History of Current Complaint Chief Complaint: UCRash Time Seen by Provider: 10/08/18 15:42 Stated Complaint: SKIN CONCERN Hx Obtained From: Patient Hx Last Menstrual Period: 08/01/18 ?: Yes - 10 weeks Timing: Constant Current Severity: None Pain Intensity: 0 Pain Scale Used: 0-10 Numeric Location: Discrete - b/l inner thighs - Allergy/Home Medications Allergies/Adverse Reactions: Allergies Allergy/AdvReac Type Severity Reaction Status Date / Time No Known Allergies Allergy Verified 10/08/18 15:50 Home Medications: Home Medications Pnv No.95/Ferrous Fum/Folic AC [ Caplet] 1 each PO DAILY 10/08/18 [ History Confirmed 10/08/18] PMH/Surg Hx/FS Hx/Imm Hx Previously Healthy: Yes - h/o yeast infections as child - Surgical History Surgical History: Yes Surgery Procedure, Year, and Place: wisdom teeth removal 2007 [facility] SUR[facility] [place]. arthroscopic knee sx right knee for torn meniscus. - Family History Known Family History: Positive: Other - pancreatic ca Negative: Cardiac Disease - Social History Alcohol Use: Occasionally Alcohol Amount: 2 DRINKS PER WEEK Substance Use Type: None Smoking Status (MU): Never Smoked Tobacco Have You Smoked in the Last Year: No - Immunization History Vaccination Up to Date: Yes Review of Systems All Other Systems Reviewed And Are Negative: Yes Skin: Positive: Rash - b/l thighs Is Patient Immunocompromised?: No Physical Exam Triage Information Reviewed: Yes Appearance: Well-Appearing, No Pain Distress, Well-Nourished Vital Signs: Initial Vital Signs Temp 99.2 F 10/08/18 15:45 Pulse 74 10/08/18 15:45 Resp 16 10/08/18 15:45 BP 122/64 10/08/18 15:45 Pulse Ox 100 10/08/18 15:45 Vital Signs Reviewed: Yes Eyes: Positive: Conjunctiva Clear Musculoskeletal Exam: Normal Neurological Exam: Normal Psychological Exam: Normal Skin: Positive: Rashes - b/l inner thighs, distinct border with satelite lesions around border, + erythema, not raised, non-tender, marked on areas where thighs touched, not extending outside this area. Course/Dx - Course Course Of Treatment: - low dose steroid for short term due to , deemed safe per up to date. - antifungal creme for treatment - follow up if no improvement - information about intertrigo given - Differential Diagnoses - Skin Complaint Differential Diagnoses: Eczema, Erythema Multiforme, Impetigo, Urticaria - Diagnoses Provider Diagnosis: Intertrigo Discharge - Sign-Out/Discharge Documenting (check all that apply): Patient Departure All imaging exams completed and their final reports reviewed: No Studies - Discharge Plan Condition: Good Disposition: HOME Prescriptions: Clotrimazole 1% CREAM* [Clotrimazole 1%*] 1 applic TOPICAL BID #1 tube Hydrocortisone 1% CREAM(NF) 1 applic TOPICAL DAILY #1 applic Patient Education Materials: Skin Yeast Infection (ED) Referrals: Donaldo Brown DO [Primary Care Provider] - Additional Instructions: Intertrigo- Yeast infection of skin, similar to diaper rash Practices aimed at minimizing moisture and friction in the involved area and reducing susceptibility to intertrigo are the mainstays of treatment. Typical beneficial practices include: -Daily cleansing of intertriginous skin with a mild cleanser followed by drying of affected area with a hair assistant on a cool setting -Aeration of affected area when feasible -Daily application of drying powders -Use of absorbent material or clothing, such as cotton or mendez wool, to separate skin in folds - Antifungal cream for intertrigo twice daily until symptoms resolve, follow up with primary within 5-7 days if no improvement, return if worsening. May mix pea-size amount of hydrocortisone in medications x 2 times to decrease inflammation - Hydrocortisone for small rash on neck- use sparingly and for less than 1 week period. - Billing Disposition and Condition Condition: GOOD Disposition: Home
== END 2018-10-08 16:18 | disposition home or self-care (01) ==
LOC: UCCORT 15:18
DX: L30.4 Erythema intertrigo (principal); O26.891 Other specified pregnancy related conditions, first trimester; Z3A.10 10 weeks gestation of pregnancy
CPT/HCPCS: 99212; G0463

== ENCOUNTER 2019-05-18 09:58 | Inpatient (IN) | payer BC ==
[2019-05-18] MEDS ORDERED: Buffered Lidocaine 1% SYRIN* 1 ML/SYRINGE INTRADERM ONE (10:46)
[2019-05-18] MEDS ORDERED: Lactated Ringers 1000 ML Bag* 1,000 ML IV ONE ×2 (10:46→13:53)
--- NOTE | 2019-05-18 10:55 | HP ---
General Information - Reason for Visit Pt reports ctx starting at 0500, increasing in frequency and intensity. Denies LOF. - General Information Maternal Age: 28 Grav: 2 Para: 0 SAB: 1 IEA: 0 Estimated Due Date: 05/17/19 Gestational Age in Weeks/Days: 40 05/07 Maternal Blood Type and Rh: A Positive - Results this Serology/RPR Result: Non-Reactive Rubella Result: Non-Immune HBsAg Result: Negative HIV Result: Negative GBS Culture Result: Negative Past Medical History Delivery History: See Records - Primiparous Pertinent Past Medical History: See Records - cold sores Pertinent Past Surgical History: See Records - wisdom tooth extraction Pertinent Family History: Non-Contributory - Antepartal Records Antepartal Records: Reviewed, Uncomplicated Review of Systems Constitutional: Uncomfortable CV Complaint: No Respiratory: Shortness of Breath: No Gastrointestinal: No Nausea/Vomiting, Normal Bowel Movement Genitourinary: No Dysuria, No Bleeding, No Leaking Fluid Musculoskeletal: No Epigastric Pain, Contractions Neurological: No Headache, No Visual Changes Movement: Normal Exam Allergies/Adverse Reactions: Allergies No Known Allergies Allergy (Verified 10/08/18 15:50) T-97.5, P-85, R-22, BP-130/77, O2-99% - Measurements Height: 5 ft 9 in Weight: 98.883 kg Weight in lbs: [id number] Body Mass Index (BMI): 32.1 Pre- Weight: 85.729 kg Weight Gained This : 29 lbs and 0 ozs - Exam Breast: Breast Exam Deferred CVA: No CVA Tenderness Extremities: Edema - trace bilateral pedal Heart: Normal Rhythm/Heart Sounds HEENT: No Significant Findings Lungs: Clear Bilaterally Rectal: Rectal Exam Deferred Reflexes: DTR 2+ Thyroid: No Thyromegaly - Abdominal Exam Abdomen Exam: Non-Tender, Fundal Height Consistent with Dates - Ultrasound/Biophysical Profile Ultrasound Status: Not Done Targeted Exam Findings See L&D Outpatient Visit Provider Note for Findings: N/A Estimated Weight: 7.5# Cervical Exam: 4cm Effacement: 90% Station: -1 Presenting Part: Vertex Membrane Status: Bulging Bleeding/Discharge: None EFM Findings - External Monitor Findings Baseline Heart Rate: 145 External Monitor Findings: Accelerations Present, No Pattern of Variable or Late Decelerations, Variability Moderate, Baseline Stable Contractions: Regular, Moderate, 45-90 Seconds Contraction Frequency: 2-5 minutes Assessment/Plan - Assessment 28 year old at 40 1/7 weeks gestation in active labor. Intact membranes. No evidence of acidemia. - Plan Plan: Admit - Anticipate Vaginal Delivery
[2019-05-18] MEDS ORDERED: Lactated Ringers 1000 ML Bag* 1,000 ML IV SCH ×3 (11:00→22:00)
[2019-05-18 12:09] LABS: Urine Benzodiazepine Screen None Detected (None Detect); Urine Opiates Screen None Detected (None Detect)
[2019-05-18 12:18] LABS: ABS Lymphocytes 1.8 10^3/ul (1.0-4.8); ABS Monocytes 0.6 10^3/ul (0-0.8); Hematocrit 40 % (35-47); Lymphocyte % 13.5 %; Mean Corpuscular HGB Conc 35 g/dL (31-36); Mean Corpuscular Hemoglobin 34 pg (27-31); Mean Corpuscular Volume 99 fL (80-97); Mean Platelet Volume 8.3 fL (7.4-10.4); Nucleated Red Blood Cells % 0.1; Platelet Count 284 10^3/uL (150-450); Red Blood Count 4.05 10^6 /uL (3.70-4.87); Red Cell Distribution Width 13 % (10-15); White Blood Count 13.5 10^3/uL (3.5-10.8)
--- NOTE | 2019-05-18 12:18 | PN ---
Progress Note - Progress Note Date of Service: 05/18/19 SOAP: Subjective: Pt reports ctx increasingly intense, breathing through them. She used the tub for a bit, but got overheated so got out. Coping well at this time. at bedside, supportive. Objective: FHR: 140 per doppler UCs: 2-3 minutes Cervical exam deferred Assessment: Pt in active labor, no evidence of acidemia or chorioamnionitis. Plan: Discussed options for pain relief, pt coping well for now. IV access established and CBC, Type and Screen sent in case she decides on epidural.
[2019-05-18] MEDS ORDERED: OBEPIDURAL* 250 ML EPIDURAL ONE (12:39)
--- NOTE | 2019-05-18 12:45 | PN ---
Progress Note - Progress Note Date of Service: 05/18/19 Note: Pt now reports ctx feeling much stronger, requests epidural. Dr. Hunt notified , however he is in a surgical case which has just started, requests we call second call. Dr. Neely notified, will come in. Cervical exam: 6cm/ +1/ vtx/ 100 %. UCs strong, every 2-3 minutes. Will reevaluate once pt comfortable with epidural.
[2019-05-18] MEDS ORDERED: Phenylephrine 40 MCG/ML SYRINGE IV PUSH PRN ×2 (13:53)
[2019-05-18] MEDS ORDERED: Sodium Citrate/Citric Acid* 15 ML UDC PO PRN (13:53)
[2019-05-18] MEDS ORDERED: OBEPIDURAL* 250 ML EPIDURAL SCH (14:00)
--- NOTE | 2019-05-18 14:05 | PN ---
Progress Note - Progress Note Date of Service: 05/18/19 SOAP: Subjective: Pt comfortable with epidural. , mother, and MIL at bedside. Objective: FHR: Baseline 155/ moderate variability/ early decels and isolated late decel UCs: 3-5 minutes BP: 108/88 Assessment: Pt appears to be making good progress. No evidence of acidemia. Plan: Position changes once catheter is in place. Recheck in an hour or so or as needed. Anticipate progression to full dilation and .
--- NOTE | 2019-05-18 17:44 | PN ---
Progress Note - Progress Note Date of Service: 05/18/19 SOAP: Subjective: Pt reports some pressure with ctx. Comfortable. Objective: Cervix: anterior lip/ +1/ 100%/ vtx/ bulging bag prior to AROM FHR: Baseline 160/ moderate variability/ no accels/ early decels UCs: Q 3 minutes Fluid meconium stained after AROM Assessment: Pt making good progress. No evidence of acidemia or chorioamnionitis. Meconium stained fluid. Plan: Continue to monitor FHR, temp. Anticipate trial of pushing when pt begins to feel urge to push.
[2019-05-18] MEDS ORDERED: Oxytocin in LR* 20 UNITS/1,000 ML BAG IVPB ONE (19:04)
--- NOTE | 2019-05-18 19:55 | PN ---
Progress Note - Progress Note Date of Service: 05/18/19 Note: Pt fully dilated and +1 station. Pushing initiated. Pt pushing with good effort. Anticipate .
[2019-05-18] MEDS ORDERED: Ibuprofen TAB* 600 MG ONE (21:36)
[2019-05-18] MEDS ORDERED: Witch Hazel PAD* JAR TOPICAL PRN (21:41)
[2019-05-18] MEDS ORDERED: Acetaminophen TAB* 325 MG PO PRN (21:41)
[2019-05-18] MEDS ORDERED: Dibucaine 1% 28.35 GM TUBE PR PRN (21:41)
[2019-05-18] MEDS ORDERED: Glycerin ADULT SUPP PR PRN (21:41)
[2019-05-18] MEDS ORDERED: Methylergonovine INJ* 0.2 MG/ML 1ML AMP IM ONE (21:41)
[2019-05-18] MEDS ORDERED: Oxytocin in LR* 20 UNITS/1,000 ML BAG IVPB SCH (22:00)
--- NOTE | 2019-05-18 22:31 | PROCNOTE ---
[facility] OB: Delivery Note - Delivery A Date of : 05/18/19 Time of : 20:38 [place] Sex: Female Weight at : 3.055 kg Score 1 Minute: 8 Score 5 Minutes: 9 Gestational Age in Weeks and Days at Delivery: 40 Weeks and 1 Days Delivery Method: Spontaneous Vaginal Labor: Spontaneous Did Patient attempt ?: N/A, No Previous Amniotic Fluid: Meconium Estimated Blood Loss: 500 Anesthesia/Analgesia: CEI for Labor Delivered By: Abby Quick Nursery Level of Nursery: Regular/Bedside - Perineum Perineal Injury: None/Intact Perineal Repair: None - Events Delivery Events of Note: Pitocin Only After Delivery, Post- Bleeding - Meds Given - Additional Delivery Notes Additional Delivery Notes: Pt admitted to Labor and Delivery in active labor. She made steady progress, eventually requesting and receiving an epidural with good relief of pain. AROM performed to meconium stained fluid. Pt eventually progressed to full dilation and an urge to push. Pt pushed effectively with steady descent. [facility] and pt coached through slow, controlled delivery of the head, after which body delivered rapidly. Double nuchal cord and loop around trunk noted. Cord unwound and placed on maternal abdomen, dried and stimulated and suctioned with bulb suction, resulting in vigorous cry and good tone. HR> 100. After cord pulsation ceased cord clamped x2 and cut by 's father. Placenta delivered with gentle cord traction, spontaneous and karlo. Uterus initially boggy, Pitocin started at 250 cc/ hr immediately after delivery of placenta. Fundal massage performed and methergine administered after which time uterus became firm and bleeding stopped. Examination of the perineum revealed it to be intact. Infant . Mother and infant stable at this time, anticipate normal course.
[2019-05-19] MEDS: Ibuprofen TAB* 600 MG PO PRN ×2 (03:43→09:51)
[2019-05-19 06:40] LABS: ABS Lymphocytes 1.8 10^3/ul (1.0-4.8); ABS Monocytes 1.3 10^3/ul (0-0.8); ABS Neutrophils 12.7 10^3/ul (1.5-7.7); Eosinophil % 0.1 %; Hematocrit 35 % (35-47); Hemoglobin 12.2 g/dL (12.0-16.0); Lymphocyte % 11.2 %; Mean Corpuscular HGB Conc 35 g/dL (31-36); Mean Corpuscular Hemoglobin 34 pg (27-31); Mean Corpuscular Volume 99 fL (80-97); Mean Platelet Volume 8.4 fL (7.4-10.4); Platelet Count 221 10^3/uL (150-450); Red Blood Count 3.53 10^6 /uL (3.70-4.87); Red Cell Distribution Width 13 % (10-15); White Blood Count 15.8 10^3/uL (3.5-10.8)
[2019-05-19] MEDS ORDERED: Ferrous Gluconate TAB* 324 MG TAB PO SCH (09:00)
[2019-05-19] MEDS ORDERED: Measles, Mumps,Rubella VACC* 0.5 ML/VIAL SUBCUT ONE (09:00)
[2019-05-19] MEDS: Docusate CAP* 100 MG PO SCH ×3 (09:51→20:37)
[2019-05-20] MEDS: Ibuprofen TAB* 600 MG PO PRN (08:23)
[2019-05-20] MEDS: Docusate CAP* 100 MG PO SCH (08:23)
[2019-05-20 13:11] VITALS: BP 121/77
== END 2019-05-20 12:52 | disposition home or self-care (01) | DRG 560 ==
LOC: MCHOBOUT 09:58 → MCHOB 10:43
PROVIDERS: ADMIT Midwife; ATTEND Midwife
PROC: 10E0XZZ Delivery of Products of Conception, External Approach (ICD-10-PCS; principal; 2019-05-18)
PROC: 10907ZC Drainage of Amniotic Fluid, Therapeutic from Products of Conception, Via Natural or Artificial Opening (ICD-10-PCS; 2019-05-18)
PROC: 4A1HXCZ Monitoring of Products of Conception, Cardiac Rate, External Approach (ICD-10-PCS; 2019-05-18)
DX: O48.0 Post-term pregnancy (principal); O98.52 Other viral diseases complicating childbirth; Z37.0 Single live birth; O72.1 Other immediate postpartum hemorrhage; O69.81X0 Labor and delivery complicated by cord around neck, without compression, not applicable or unspecified; O69.2XX0 Labor and delivery complicated by other cord entanglement, with compression, not applicable or unspecified; B00.1 Herpesviral vesicular dermatitis; O76 Abnormality in fetal heart rate and rhythm complicating labor and delivery; O77.0 Labor and delivery complicated by meconium in amniotic fluid; Z3A.40 40 weeks gestation of pregnancy
CPT/HCPCS: 36415; 80307; 85025; 86850; 86900; 86901; 90707; A9270-GY; J2210